=== PATIENT | female | born 1965 | race Caucasian/White ===

== ENCOUNTER → 2017-08-12 | Outpatient (REF) | payer OTHER ==
[~2017-08-12] MED LIST: BIOFREEZE TOP; NEUR300C OR; ORTHONOVUM PO; PERC5TAB8 OR; [UNRECOGNIZED DRUG - OTHER] PO
== END ==
LOC: M LAB REF 10:19
PROVIDERS: ATTEND Internal Medicine Endocrinology, Diabetes & Metabolism
DX: E04.1 Nontoxic single thyroid nodule (principal)